=== PATIENT | male | born 1990 | race Caucasian/White ===

== ENCOUNTER 2017-07-24 11:23 | Emergency (ER) | payer BC, OTHER ==
[~2017-07-24] VITALS: Ht 172.7 cm; Wt 75.0 kg
[~2017-07-24 11:23] MED LIST: CHOL1CAP57 PO; IBUP-1050 PO; SERT-234 PO
[2017-07-24 11:36] VITALS: Ht 172.7 cm; Wt 75.0 kg
--- NOTE | 2017-07-24 13:27 | DIAGNOSTIC IMAGING REPORT ---
RIGHT FOOT 3 VIEWS HISTORY: Right toe pain. COMPARISON: None. FINDINGS: There is no fracture or dislocation. Soft tissues are unremarkable. No radiopaque foreign bodies. IMPRESSION: No fractures. Electronically signed by: Stevie Silver M.D. 07/24/2017 1:26 PM Dictated Date/Time: 07/24/2017 1:23 PM
[2017-07-24 13:54] VITALS: BP 144/97; PULSE 77; TEMP 36.9; O2SAT 98
--- NOTE | 2017-07-24 14:10 | EMERGENCY ROOM VISIT NOTE ---
History Report prepared by Chastity: Tere Story Under the Supervision of: Dr. Nahun Hines M.D. First contact with patient: 12:39 Chief Complaint: INFECTION Stated Complaint: POSSIBLE INFECTION - DENT FEET Nursing Triage Summary: pt reports possible infection in bilat feet discolored and has scrapes and wounds. History of Present Illness The patient is a 27 year old male who presents to the Emergency Room with complaints of a possible infection of his bilateral feet. The patient states that he recently noticed some purple discoloration to his bilateral feet and toes, more so on the right. He states that this has been getting worse. He denies any recent injury or trauma to his feet or toes. He denies bumping them on anything. He denies any pain to his lower extremities. The patient has not had his feet exposed to the cold weather. He has had some numbness and tingling in his feet and hands before but denies any history of circulation problems. The patient denies any fevers or chills. He does report some mild, intermittent nausea. He went to [facility] today for his symptoms and was sent to the ED for further evaluation. The patient denies any personal history of DM. Source of History: patient Onset: [employer] Position: foot (bilateral), toe(s) Quality: other (purple discoloration) Timing: worsening Associated Symptoms: + nausea, No fevers, No chills Note: Pt denies trauma or injury. Review of Systems See HPI for pertinent positives & negatives. A total of 10 systems reviewed and were otherwise negative. Past Medical & Surgical Medical Problems: (1) ANXIETY STATE NOS (2) Pneumothorax (3) TOBACCO USE DISORDER Surgical Problems: (1) History of chest tube placement Family History Diabetes mellitus Hypertension Social History Smoking Status: Current Some Day Smoker Alcohol Use: occasionally Marital Status: single Housing Status: lives alone Occupation Status: employed Current/Historical Medications No Active Prescriptions or Reported Meds Allergies Coded Allergies: No Known Allergies (Unverified , 07/24/17) Physical Exam Vital Signs Date Time Temp Pulse Resp B/P (MAP) Pulse Ox O2 Delivery O2 Flow Rate FiO2 07/24/17 13:54 36.9 77 18 144/97 98 07/24/17 13:24 77 18 144/97 98 Room Air 07/24/17 11:36 36.9 79 18 146/89 97 Room Air Physical Exam GENERAL: Patient is in no acute distress. HEENT: No acute trauma, normocephalic atraumatic, mucous membranes moist, no nasal congestion, no scleral icterus. NECK: No stridor, no adenopathy, no meningismus, trachea is midline. LUNGS: Clear to auscultation bilaterally, no wheeze, no rhonchi, breath sounds equal. HEART: Without murmurs gallops or rubs, regular rate and rhythm. ABDOMEN: Soft, nontender, bowel sounds positive, no hernias, no peritonitis. EXTREMITIES: He has no edema to either lower extremity. The right 1st through 3rd toes appear contused, capillary refill is intact. There is hair growing on the dorsum of right foot and toes consistent with adequate circulation, no erythema, no problems with sensation or movement of toes. Strong dorsalis pedis pulse. There is a subtle abrasion to the dorsal aspect of his 3rd toe, no signs of infection. . NEUROLOGIC: Oriented x 3, no acute motor or sensory deficits, no focal weakness. SKIN: No rash, no jaundice, no diaphoresis. Medical Decision & Procedures ER Provider Diagnostic Interpretation: Radiology results as stated below per my review and radiologist interpretation: RIGHT FOOT 3 VIEWS HISTORY: Right toe pain. COMPARISON: None. FINDINGS: There is no fracture or dislocation. Soft tissues are unremarkable. No radiopaque foreign bodies. IMPRESSION: No fractures. Electronically signed by: Stevie Silver M.D. 07/24/2017 1:26 PM Dictated Date/Time: 07/24/2017 1:23 PM ED Course 1239: The patient was evaluated in room B3B. A complete history and physical exam was performed. 1348: I reassessed the patient at this time. He is feeling better and resting comfortably. I discussed the results and treatment plan with the patient. I answered all pertaining questions that he had. He expressed understanding and verbalized agreement. The patient will be discharged home. Medical Decision Differential diagnoses includes contusion, poor circulation, infection, fracture , gangrene. Patient presents with some discoloration to his toes, primarily of the right foot. He denies trauma. On exam, there was no gangrene, no cellulitis, no signs of infection. He did have adequate capillary refill distally and a strong dorsalis pedis pulse on the right. Films of the toes do not show fracture. I think the patient has some contusion to his toes, there is an abrasion over the dorsum of the one toe indicating some trauma, the patient though cannot remember striking the foot. The patient has been reassured, he'll keep his feet warm and watch closely for worsening symptoms. Medication Reconcilliation Current Medication List: was personally reviewed by me Blood Pressure Screening Patient's blood pressure: Elevated blood pressure Blood pressure disposition: Elevated BP felt to be situational Impression Primary Impression: Contusion, toes Additional Impression: Discoloration of skin of toe Scribe Attestation The scribe's documentation has been prepared under my direction and personally reviewed by me in its entirety. I confirm that the note above accurately reflects all work, treatment, procedures, and medical decision making performed by me. Departure Information Dispostion Home / Self-Care Prescriptions No Active Prescriptions or Reported Meds Referrals No Doctor, Assigned (PCP) Forms HOME CARE DOCUMENTATION FORM, IMPORTANT VISIT INFORMATION, WORK / SCHOOL INSTRUCTIONS Patient Instructions My [facility] Additional Instructions keep the feet warm as we discussed watch for infection--redness, fever or drainage no fracture today by film by exam you have good blood flow to the feet Problem Qualifiers
== END 2017-07-24 13:58 | disposition home or self-care (01) ==
LOC: C.EDB 11:25
DX: S90.121A Contusion of right lesser toe(s) without damage to nail, initial encounter (principal); X58.XXXA Exposure to other specified factors, initial encounter; L81.9 Disorder of pigmentation, unspecified; F41.9 Anxiety disorder, unspecified; F17.210 Nicotine dependence, cigarettes, uncomplicated; Z83.3 Family history of diabetes mellitus; Z82.49 Family history of ischemic heart disease and other diseases of the circulatory system